=== PATIENT | male | born 1950 | race Caucasian/White ===

== ENCOUNTER 2016-07-22 19:03 | Inpatient (IN) | payer MEDICARE, OTHER ==
[~2016-07-22] VITALS: Ht 180.3 cm; Wt 62.3 kg
[~2016-07-22 19:03] MED LIST: AUD NEB; BUDE0.5A3 NEB; DSS100 PO; HEPA500017 SQ; INSU100C6 SQ; IPRNEB IH; IPRNEB NEB; MOM30 PO; PANT40TA25 PO; PRED20 PO
[2016-07-22] MEDS ORDERED: MethylPREDNISolone SOD SUCC 125 MG/2 ML VIAL IVP ONE (19:15)
[2016-07-22 19:25] LABS: ABG A-A DIFF O2 504.8 mmHg (10-20.0); ABG BASE EXCESS 24.7 mmol/L (-2.0-3.0); ABG HCO3 43.1 mmol/L (22.0-26.0); ABG OXYHEMOGLOBIN 94.1 % (94.0-100.0); ABG PH 7.259 (7.35-7.450); TEMPERATURE, FAHRENHEIT, BG 98.6 FAHREN (96.0-98.6)
[2016-07-22 19:26] LABS: ABG PCO2 118 mmHg (35-45); ALLEN TEST, BLOOD GAS POS
[2016-07-22 19:27] LABS: IPAP, BG 18 cm H2O
[2016-07-22 19:30] LABS: BASOPHILS # (AUTO) 0.01 K/uL (0.00-0.20); BASOPHILS % (AUTO) 0.1 % (0.0-2.0); EOSINOPHILS # (AUTO) 0.01 K/uL (0.00-0.70); EOSINOPHILS % (AUTO) 0.06 % (1.0-6.0); HEMATOCRIT 40.9 % (41-53); HEMOGLOBIN 13.1 g/dL (13.5-17.5); LYMPHOCYTES # (AUTO) 1.3 K/uL (1.0-4.8); LYMPHOCYTES % (AUTO) 10.3 % (22.0-44.0); MEAN CORPUSCULAR VOLUME 97 fL (80-100); MONOCYTES # (AUTO) 0.1 K/uL (0.1-1.0); MONOCYTES % (AUTO) 0.7 % (2.0-9.0); NEUTROPHILS # (AUTO) 11.1 K/uL (1.8-7.7); PLATELET COUNT (AUTO) 307 K/uL (150-450); RED BLOOD CELL COUNT(AUTO) 4.23 MIL/uL (4.50-5.90); WHITE BLOOD COUNT (AUTO) 12.5 K/uL (4.5-11.0)
[2016-07-22 19:31] LABS: NEUTROPHILS % (AUTO) 88.9 % (40.0-70.0)
[2016-07-22 19:41] LABS: PROTHROMBIN TIME 10.8 SEC (9.4-11.6)
[2016-07-22 19:44] LABS: RBC MORPHOLOGY COMMENT NORMAL RBC MORPH
[2016-07-22 19:50] LABS: B-TYPE NATRIURETIC PEPTIDE 96 pg/mL (0-100)
[2016-07-22 20:04] LABS: ALANINE AMINOTRANSFERASE 63 U/L (12-78); ALBUMIN 3.5 g/dL (3.4-5.0); ANION GAP 1 mmol/L (8-16); ASPARTATE AMINOTRANSFERASE 31 U/L (15-37); BILIRUBIN,TOTAL 0.3 mg/dL (0.1-1.0); CALCIUM, TOTAL 9.2 mg/dL (8.8-10.5); CHLORIDE 95 mmol/L (98-107); CREATINE KINASE MB 17.5 ng/mL (0-5); CREATINE KINASE, TOTAL 116 U/L (39-308); CREATININE 0.62 mg/dL (0.60-1.30); GLOMERULAR FILTR. RATE CALC > 60 mL/min (>60); POTASSIUM 4.5 mmol/L (3.5-5.1); SODIUM SERUM 141 mmol/L (136-145); TOTAL PROTEIN, SERUM 6.8 g/dL (6.4-8.2); UREA NITROGEN, BLOOD 16 mg/dL (7-18)
[2016-07-22 20:09] LABS: CARBON DIOXIDE 45 mmol/L (22-29)
[2016-07-22 21:17] LABS: ABG A-A DIFF O2 532.9 mmHg (10-20.0); ABG BASE EXCESS 21.5 mmol/L (-2.0-3.0); ABG OXYHEMOGLOBIN 97.3 % (94.0-100.0); TEMPERATURE, FAHRENHEIT, BG 98.6 FAHREN (96.0-98.6)
[2016-07-22 21:18] LABS: ABG PCO2 73 mmHg (35-45); ALLEN TEST, BLOOD GAS POS; IPAP, BG 20 cm H2O
[2016-07-22] MEDS ORDERED: MAGNESIUM HYDROXIDE SUSPENSION 30 ML UDCUP PO PRN (22:15)
[2016-07-22] MEDS ORDERED: ACETAMINOPHEN 325 MG TABLET PO PRN (22:15)
[2016-07-22] MEDS ORDERED: ALBUTEROL SULFATE 2.5 MG/0.5 ML NEB SOLUTION NEB PRN (22:15)
[2016-07-22] MEDS ORDERED: OxyCODONE HCL/ACETAMINOPHEN 5-325 MG TABLET PO PRN (22:15)
[2016-07-22] MEDS ORDERED: BISACODYL 10 MG RECTAL RECTAL SUPPOSITORY PR PRN (22:15)
[2016-07-22] MEDS ORDERED: ONDANSETRON HCL 4 MG/2 ML VIAL IVP PRN (22:15)
[2016-07-22 22:25] VITALS: BP 137/77
[2016-07-22 22:30] VITALS: BP 137/77
[2016-07-22] MEDS ORDERED: SODIUM CHLORIDE 0.9% 1,000 ML IV ONE (23:36)
[2016-07-22] MEDS: MethylPREDNISolone SOD SUCC 125 MG/2 ML VIAL IVP SCH (23:40)
[2016-07-22] MEDS: HEPARIN SODIUM,PORCINE 5,000 UNITS/ML VIAL SQ SCH (23:40)
[2016-07-23] MEDS: AZITHROMYCIN 500 MG/NS 250 ML IV SCH ×2 (00:32→23:05)
[2016-07-23] MEDS: IPRATROPIUM BROMIDE 0.5 MG/2.5 ML NEB SOLUTION NEB SCH ×4 (02:03→20:22)
[2016-07-23] MEDS: ALBUTEROL SULFATE 2.5 MG/0.5 ML NEB SOLUTION NEB SCH ×4 (02:04→20:22)
[2016-07-23 04:17] VITALS: BP 96/69
[2016-07-23] MEDS: MethylPREDNISolone SOD SUCC 125 MG/2 ML VIAL IVP SCH ×4 (05:59→23:13)
[2016-07-23 08:17] VITALS: BP 118/70
[2016-07-23] MEDS: PANTOPRAZOLE SODIUM 40 MG DR TABLET PO SCH (08:17)
[2016-07-23] MEDS: HEPARIN SODIUM,PORCINE 5,000 UNITS/ML VIAL SQ SCH ×3 (08:17→23:13)
[2016-07-23 10:58] VITALS: BP 106/68
[2016-07-23 16:32] VITALS: BP 103/68
[2016-07-23] MEDS: BENZONATATE 100 MG CAPSULE PO SCH ×2 (17:21→20:58)
[2016-07-23 20:14] VITALS: BP 124/93
[2016-07-23] MEDS: BUDESONIDE 0.5 MG/2 ML NEB SOLUTION NEB SCH (20:22)
[2016-07-23] MEDS: GuaiFENesin SR 600 MG ER TABLET PO SCH (20:58)
[2016-07-23] MEDS: FLUTICASONE/VILANTEROL 200-25 MCG/INH INHALER [14] IH SCH (20:58)
[2016-07-23] MEDS: AcetaZOLAMIDE SODIUM 500 MG VIAL IVP SCH (23:04)
[2016-07-23 23:13] VITALS: BP 101/59
[2016-07-24 04:00] VITALS: BP_SYST 111; BP_DIAS 60; BP_DIAS 61
[2016-07-24] MEDS: MethylPREDNISolone SOD SUCC 125 MG/2 ML VIAL IVP SCH ×4 (06:42→23:22)
[2016-07-24 07:48] VITALS: BP 107/74
[2016-07-24] MEDS: IPRATROPIUM BROMIDE 0.5 MG/2.5 ML NEB SOLUTION NEB SCH ×3 (08:00→21:06)
[2016-07-24] MEDS: ALBUTEROL SULFATE 2.5 MG/0.5 ML NEB SOLUTION NEB SCH ×3 (08:00→21:06)
[2016-07-24] MEDS: HEPARIN SODIUM,PORCINE 5,000 UNITS/ML VIAL SQ SCH ×3 (08:42→23:22)
[2016-07-24] MEDS: BENZONATATE 100 MG CAPSULE PO SCH ×3 (08:43→21:25)
[2016-07-24] MEDS: PANTOPRAZOLE SODIUM 40 MG DR TABLET PO SCH (08:43)
[2016-07-24] MEDS: AcetaZOLAMIDE SODIUM 500 MG VIAL IVP SCH (08:43)
[2016-07-24] MEDS: GuaiFENesin SR 600 MG ER TABLET PO SCH ×2 (08:43→21:25)
[2016-07-24] MEDS: BUDESONIDE 0.5 MG/2 ML NEB SOLUTION NEB SCH ×2 (09:00→21:06)
[2016-07-24 11:29] VITALS: BP_SYST 115; BP_SYST 15; BP_DIAS 65
[2016-07-24 15:58] VITALS: BP 105/65
[2016-07-24 20:06] VITALS: BP 125/64
[2016-07-24] MEDS: FLUTICASONE/VILANTEROL 200-25 MCG/INH INHALER [14] IH SCH (21:25)
[2016-07-24 23:03] VITALS: BP 111/72
[2016-07-24] MEDS: AZITHROMYCIN 500 MG/NS 250 ML IV SCH (23:22)
[2016-07-25] MEDS: IPRATROPIUM BROMIDE 0.5 MG/2.5 ML NEB SOLUTION NEB SCH ×3 (02:01→14:00)
[2016-07-25] MEDS: ALBUTEROL SULFATE 2.5 MG/0.5 ML NEB SOLUTION NEB SCH ×3 (02:01→14:00)
[2016-07-25 04:44] VITALS: BP 108/64
[2016-07-25] MEDS: MethylPREDNISolone SOD SUCC 125 MG/2 ML VIAL IVP SCH ×3 (06:13→16:56)
[2016-07-25 07:19] VITALS: BP 132/76
[2016-07-25] MEDS: BUDESONIDE 0.5 MG/2 ML NEB SOLUTION NEB SCH (08:08)
[2016-07-25] MEDS: GuaiFENesin SR 600 MG ER TABLET PO SCH (08:38)
[2016-07-25] MEDS: BENZONATATE 100 MG CAPSULE PO SCH ×2 (08:38→16:57)
[2016-07-25] MEDS: PANTOPRAZOLE SODIUM 40 MG DR TABLET PO SCH (08:38)
[2016-07-25] MEDS: HEPARIN SODIUM,PORCINE 5,000 UNITS/ML VIAL SQ SCH ×2 (08:38→16:57)
[2016-07-25] MEDS: AcetaZOLAMIDE SODIUM 500 MG VIAL IVP SCH (08:39)
[2016-07-25 15:44] VITALS: BP 145/85
== END 2016-07-25 17:50 | DRG 189 ==
LOC: EDBD 19:07 → EMS 19:07 → 6N 22:25
PROVIDERS: ADMIT Hospitalist; ATTEND Hospitalist
PROC: 5A09457 Assistance with Respiratory Ventilation, 24-96 Consecutive Hours, Continuous Positive Airway Pressure (ICD-10-PCS; principal; 2016-07-22)
DX: J96.02 Acute respiratory failure with hypercapnia (principal); J44.1 Chronic obstructive pulmonary disease with (acute) exacerbation; R64 Cachexia; J96.11 Chronic respiratory failure with hypoxia; Z66 Do not resuscitate; D64.9 Anemia, unspecified; D72.829 Elevated white blood cell count, unspecified; R73.9 Hyperglycemia, unspecified; T38.0X5A Adverse effect of glucocorticoids and synthetic analogues, initial encounter; Z79.52 Long term (current) use of systemic steroids; Z87.891 Personal history of nicotine dependence; Z99.81 Dependence on supplemental oxygen; Y93.89 Activity, other specified; Y92.89 Other specified places as the place of occurrence of the external cause; Y99.8 Other external cause status
CPT/HCPCS: 82805; 93005; 94640; 94660; 96374; 99285; J0456; J1120; J1644; J2930; J7030